=== PATIENT | female | born 1955 | race Caucasian/White ===

== ENCOUNTER 2020-06-12 06:47 | Emergency (ER) | payer MEDICARE, OTHER ==
[~2020-06-12] VITALS: Ht 167.6 cm; Wt 79.4 kg
[~2020-06-12 06:47] MED LIST: ALBUTEROL2.5 MG/3 M INH; ALENDRONATE SOD10 MG PO; GABAPENTIN100 MG PO; GABAPENTIN300 MG PO; MELOXICAM15 MG PO; PROVENTIL HFA6.7 GM INH; VENTOLIN HFA18 GM INH; ZOLOFT100 MG PO
[2020-06-12] MEDS ORDERED: CRUTCH1 EACH MISC (10:06)
[2020-06-12] MEDS ORDERED: NORCO 5-325 TA1 EACH PO (10:06)
== END 2020-06-12 10:30 | disposition home or self-care (01) ==
LOC: ED 06:47
DX: S92.341A Displaced fracture of fourth metatarsal bone, right foot, initial encounter for closed fracture (principal); S92.331A Displaced fracture of third metatarsal bone, right foot, initial encounter for closed fracture; S92.241A Displaced fracture of medial cuneiform of right foot, initial encounter for closed fracture; W10.9XXA Fall (on) (from) unspecified stairs and steps, initial encounter; F17.200 Nicotine dependence, unspecified, uncomplicated; Z88.5 Allergy status to narcotic agent; Z88.0 Allergy status to penicillin; Z88.8 Allergy status to other drugs, medicaments and biological substances; Z79.899 Other long term (current) drug therapy
CPT/HCPCS: 73630; 73700; 99284-25

== ENCOUNTER 2024-11-12 15:26 | Emergency (ER) | payer MEDICARE, OTHER ==
[~2024-11-12] VITALS: Ht 167.6 cm; Wt 82.9 kg
[~2024-11-12 15:26] MED LIST changes: +CRUTCH1 EACH MISC; +NORCO 5-325 TA1 EACH PO
[2024-11-12 15:56] LABS: BILIRUBIN, URINE NEGATIVE (negative); BLOOD/HGB, URINE LARGE (Negative); KETONE, URINE NEGATIVE (Negative); LEUK ESTERASE, URINE NEGATIVE (negative); NITRITE, URINE NEGATIVE (negative)
[2024-11-12 16:03] LABS: BACTERIA, URINE NONE SEEN /hpf (negative); CASTS, URINE NONE SEEN \\lpf; COLLECTION TYPE, URINE CLEAN CATCH; CRYSTALS, URINE NONE SEEN (0-1+); REFLEX CULTURE, URINE No (No)
[2024-11-12 16:04] LABS: EPITHELIAL CELLS, URINE SQUAMOUS 2+ /lpf (0-1+)
[2024-11-12] MEDS ORDERED: INCRUSE ELLI62.5 MCG INH (16:25)
[2024-11-12] MEDS ORDERED: FLUOXETINE HCL20 MG PO (16:25)
[2024-11-12] MEDS ORDERED: BREYNA 160-4.10.3 GM IH (16:26)
[2024-11-12] MEDS ORDERED: ondansetron HCL 4 MG/2 ML VIAL IV PRN (16:30)
[2024-11-12] MEDS ORDERED: KETOROLAC TROMETHAMINE 15 MG/ML VIAL IV ONE (16:30)
[2024-11-12 16:34] LABS: BASOPHILS 0.4 % (0-2); EOSINOPHILS 0.3 % (0-6); HEMATOCRIT 39.2 % (35.0-50.0); HEMOGLOBIN 13.6 g/dL (12.0-18.0); LYMPHOCYTES 10.5 % (24-44); MCH 30.5 (27-36); MCHC 34.6 g/dl (30-36); MONOCYTES 5.1 % (0-12); NEUTROPHILS 83.7 % (39-80); PLATELET COUNT 200 K/uL (140-440); RBC 4.46 M/ul (4.3-5.7); RDW 13.1 (10.5-15.0)
[2024-11-12 16:54] LABS: ALBUMIN 3.4 g/dL (3.4-5.0); ALBUMIN/GLOBULIN RATIO 0.97 (1.1-2.4); ANION GAP 14.8 (7-21); BILIRUBIN, TOTAL 0.7 mg/dL (0.2-1.0); CALCIUM 8.8 mg/dL (8.5-10.1); POTASSIUM 3.8 mmol/L (3.5-5.1); PROTEIN, TOTAL 6.9 g/dL (6.4-8.2)
[2024-11-12] MEDS ORDERED: LEVOFLOXACIN750 MG PO (18:13)
[2024-11-12] MEDS ORDERED: levoFLOXacin 750 MG TAB PO ONE (18:15)
[2024-11-12 18:24] VITALS: BP 136/73
== END 2024-11-12 18:26 | disposition home or self-care (01) ==
LOC: ED 15:26
PROVIDERS: Emergency Medicine
DX: N12 Tubulo-interstitial nephritis, not specified as acute or chronic (principal); M41.9 Scoliosis, unspecified; F17.200 Nicotine dependence, unspecified, uncomplicated; Z88.0 Allergy status to penicillin; Z88.5 Allergy status to narcotic agent; Z79.51 Long term (current) use of inhaled steroids; Z79.899 Other long term (current) drug therapy
CPT/HCPCS: 36415; 80053; 81001; 85025; 99284